=== PATIENT | female | born 1960 | race Caucasian/White ===

== ENCOUNTER 2025-06-05 12:37 | Emergency (ER) | payer BC ==
[~2025-06-05] VITALS: Ht 177.8 cm; Wt 83.1 kg
[2025-06-05 12:56] VITALS: BP 131/80; PULSE 69; RESP 18; TEMP 97.9; O2SAT 98
--- NOTE | 2025-06-05 13:48 | RADIOLOGY REPORT ---
EXAM: DI FOREARM,INCL.ONE JOINT CLINICAL INDICATION: ARM PAIN, LACERATION - FELL ON BRANCH TECHNIQUE: DI FOREARM,INCL.ONE JOINT Comparison: None FINDINGS/IMPRESSION: There is no evidence of acute fracture or dislocation. The visualized joint space is well maintained. The alignment is anatomical. There is no radiopaque foreign body.
[2025-06-05] MEDS: LIDOcaine 1% W/epiNEPHrine 1:100,000 20ml vial SQ ONE (14:08)
--- NOTE | 2025-06-05 14:09 | Physician Documentation ---
History of Present Illness ~ Chief Complaint: Laceration Stated Complaint: ARM LAC Time Seen by MD: 13:18 HPI 65-year-old female presents with with a complaint of laceration on her her right forearm. She says she was doing some housework and trimming trees and fell into a tree branch causing a laceration on the anterior of her right forearm. bleeding controlled Day of Onset: Jun 05, 2025 Medication Reconciliation Allergies: Coded Allergies: Sulfa (Sulfonamide Antibiotics) (Verified Allergy, Unknown, 06/05/25) latex (Verified Allergy, Unknown, 06/05/25) Review of Systems All Other Systems at this time: Reviewed and Negative ROS As stated above in the HPI, otherwise all systems are reviewed and negative. Physical Exam Vital Signs: Temperature: 97.9, Source: Oral, Heart Rate: 69, Respiratory Rate: 18, BP: 131/80, Pulse Oximetry: 98, Weight: 83.100 Physical Exam General: Alert, no apparent distress. Gastrointestinal: Soft, nontender, nondistended. Bowels sounds present. Extremities: Normal range of motion, no deformity. V-shaped laceration on the anterior of the right forearm proximally 5 cm in length in V-like shape Neurologic: Oriented x4. Psychiatric: Normal mood and affect. Skin: Normal color, warm and dry. No edema, no ecchymosis. Progress Results/Orders Results/Orders Orders - DOUG STEWART CHIPPER Forearm,Incl.One Joint (06/05/25 13:33) General Nursing Order (06/05/25 ) Laceration/I&D Tray Set Up (06/05/25 ) Laceration/I&D Tray Set Up (06/05/25 ) Completed Orders - DOUG STEWART CHIPPER Forearm,Incl.One Joint (06/05/25 13:33) Lidocaine 1% W/Epi 1:100,000 (Xylocaine (06/05/25 13:40) * Hand Irrigation Orders * (06/05/25 13:39) Tetanus/Pertuss/Diph Acell/Pf (Boostrix (06/05/25 14:00) Medications Received in ER Medications (Trade) Dose Ordered Sig/Mackenzie Route PRN Reason Start Time Stop Time Status Last Admin Dose Admin (Boostrix vaccine syringe) 0.5 ml ONCE ONCE IMVAC 06/05/25 14:00 06/05/25 14:01 DC 06/05/25 14:32 0.5 ML Vital Signs 06/05/25 12:56 Temp 97.9 Pulse 69 Resp 18 B/P (MAP) 131/80 Pulse Ox 98 Departure Disposition: 01 HOME / SELF CARE / HOMELESS Impression: Primary Impression: Laceration Discharge Instructions: Laceration Care, Adult, [id number] Additional Instructions: sutures can be removed in 7-10 days. monitor for signs of infection Referrals: NO PRIMARY CARE PROVIDER (PCP) Signature Scribe Signature: t Attestation: Scribed for Doug Stewart Resolution Expert by Doug Mccarthy NP . 06/05/25 18:55 DOUG STEWART NP Jun 05, 2025 14:08
[2025-06-05] MEDS: TETanus/Pertussis (Acell)/Diphther VAC/PF (Tdap-Adult) 0.5ml syringe IMVAC ONE (14:32)
== END 2025-06-05 15:19 | disposition home or self-care (01) ==
LOC: ER 12:37
DX: S51.811A Laceration without foreign body of right forearm, initial encounter (principal); Z88.2 Allergy status to sulfonamides; Z91.040 Latex allergy status; W22.09XA Striking against other stationary object, initial encounter; Y93.H2 Activity, gardening and landscaping; Y92.096 Garden or yard of other non-institutional residence as the place of occurrence of the external cause; Y99.8 Other external cause status
CPT/HCPCS: 12002; 73090; 90471; 90715; 99283; J7030; A6449